=== PATIENT | male | born 1950 | race American Indian/Alaskan Native ===

== ENCOUNTER 2016-10-09 23:13 | Emergency (ER) | payer MEDICARE ==
[2016-10-09 23:58] LABS: Basophils % (Auto) 0.4 % (0.0-1.8); Hematocrit 33.7 % (35.5-45.6); Hemoglobin 11.1 gm/dl (11.8-15.2); Mean Corpuscular HGB Conc 33 % (32-34); Mean Corpuscular Hemoglobin 32 pg (28-32); Mean Corpuscular Volume 97 fl (84-94); Platelet Count 128 K/mm3 (140-440); Red Blood Count 3.47 M/mm3 (3.65-5.03); Red Cell Distribution Width 15.5 % (13.2-15.2); White Blood Count 8.9 K/mm3 (4.5-11.0)
[2016-10-10 00:08] LABS: INR 1.21 (0.87-1.13)
[2016-10-10 00:09] LABS: Partial Thromboplastin Time 35.3 Sec. (24.2-36.6)
[2016-10-10 00:11] LABS: Anion Gap 29 mmol/L; BUN/Creatinine Ratio 12.85; Blood Urea Nitrogen 9 mg/dL (9-20); Calcium 8.8 mg/dL (8.4-10.2); Carbon Dioxide 17 mmol/L (22-30); Chloride 92.1 mmol/L (98-107); Glucose 122 mg/dL (75-100); Potassium 3.7 mmol/L (3.6-5.0); Sodium 134 mmol/L (137-145)
--- NOTE | 2016-10-10 00:12 | Cat Scan Report ---
FINAL REPORT EXAM: CT HEAD/BRAIN WO CON HISTORY: RT SIDED WEAKNESS TECHNIQUE: CT imaging acquired through the head without intravenous contrast. Transaxial reformations are provided. PRIORS: None. FINDINGS: Left larger than right subdural hematomas. There is left subfalcine and uncal herniation. Left right midline shift measures approximately 12 millimeters at the level of the foramina of [place]. At the same level, left-sided subdural hematoma measures approximately 22 millimeters in thickness from the inner table of the skull. Right-sided subdural hematoma measures up to about 4 millimeters in thickness. Subdural blood layers along the cerebellar tentorium. No definite subarachnoid hemorrhage. No skull fracture. Mastoid air cells are clear. No significant abnormality seen within the imaged paranasal sinuses. IMPRESSION: Left-sided uncal and subfalcine herniation secondary to left larger than right epidural hematomas, as detailed above. Neuro surgical consultation is needed. Dr. Cool discussed findings with Dr. Eli at [address] [employer]END[employer] following the examination.
--- NOTE | 2016-10-10 00:22 | Emergency Department Report ---
HPI - General Chief Complaint: Neuro Symptoms/Deficit Time Seen by Provider: 10/10/16 00:08 - HPI HPI: This is a 66-year-old Afro-[place] male presents to the emergency Department through triage, dropped off by a friend, with complaint of some right leg weakness. The patient had a fall 2 days ago in which he hit his head but apparently did not have any loss of consciousness at that time. His head was not bothering him but he began having some right leg weakness which he was dragging his leg and allowed his friend bring him in to be seen. The patient does drink alcohol daily but the friend says that he has not a severely intoxicated as he drinks slowly throughout the day. He otherwise has a past medical history of hypertension. ED Past Medical Hx - Past Medical History Previous Medical History?: Yes Hx Hypertension: No Hx Heart Attack/AMI: No Hx Seizures: No Hx Asthma: No Hx COPD: No Additional medical history: ULCERS - Surgical History Past Surgical History?: No - Social History Smoking Status: Never Smoker Substance Use Type: Alcohol - Medications Home Medications: Home Medications Medication Instructions Recorded Confirmed Last Taken Type No Known Home Medications [No 02/14/15 02/14/15 Unknown History Reported Home Medications] ED Review of Systems ROS: Stated complaint: HEADACHE/VOMITING/CANT MOVE RT LEG Other details as noted in HPI Comment: All other systems reviewed and negative Constitutional: weakness. denies: fever Eyes: denies: eye pain, eye discharge, vision change ENT: denies: ear pain, throat pain Respiratory: denies: cough, shortness of breath, wheezing Cardiovascular: denies: chest pain, palpitations Gastrointestinal: denies: abdominal pain, nausea, diarrhea Genitourinary: denies: urgency, dysuria Musculoskeletal: denies: back pain, joint swelling, arthralgia Skin: denies: rash, lesions Neurological: denies: headache, weakness, paresthesias Physical Exam - Physical Exam Vital Signs: Vital Signs 10/09/16 23:30 Temperature 98.3 F Pulse Rate 77 Respiratory 18 Rate Blood Pressure 165/79 O2 Sat by Pulse 100 Oximetry Physical Exam: GENERAL: Patient is ill-appearing. He is fatigued but arousable but is also confused. HEENT: Normocephalic. Atraumatic. Extraocular motions are intact. Patient has moist mucous membranes. Pupils equal reactive to light bilaterally. NECK: Supple. Trachea is midline. CHEST/LUNGS: Clear to auscultation. There is no respiratory distress noted. HEART/CARDIOVASCULAR: Regular. There is no tachycardia. There is no gallop rub or murmur. ABDOMEN: Abdomen is soft, nontender. Patient has normal bowel sounds. There is no abdominal distention. SKIN: Skin is warm and dry. NEURO: Patient is awake and able to give his name. He keeps repeating that he has to urinate but has a Lozano catheter in place. Follow some commands. MUSCULOSKELETAL: There is no tenderness or deformity. There is no limitation range of motion. There is no evidence of acute injury. ED Course Vital Signs 10/09/16 23:30 Temperature 98.3 F Pulse Rate 77 Respiratory 18 Rate Blood Pressure 165/79 O2 Sat by Pulse 100 Oximetry - Consultations Consultation #1: I spoke with [facility] and the patient was accepted for transfer by the trauma attending, Dr. Mills. 10/10/16 00:53 - Intubation Time Out Performed: Yes Sedative: Etomidate Mg Given: 20 Paralytic: Rocuronium Mg Given: 80 Laryngoscope: fiberoptic video scope Size: 3 ET Tube Size: 7.5 Tube Secured Depth (cm): 24 Tube Secured Location: lips Tube Placement Confirmation: visualized tube passing t, equal breath sounds bilat, no breath sounds over epi Patient Tolerated Procedure: well Intubation Complications: none ED Medical Decision Making - Lab Data Result diagrams: 10/09/16 23:39 10/09/16 23:39 - EKG Data -: EKG Interpreted by Me EKG shows normal: sinus rhythm, axis, intervals, QRS complexes, ST-T waves Rate: bradycardia (56 bpm) - EKG Data When compared to previous EKG there are: previous EKG unavailable Interpretation: normal EKG (with mild bradycardia) - Radiology Data Radiology results: report reviewed EXAM: CT HEAD/BRAIN WO CON HISTORY: RT SIDED WEAKNESS TECHNIQUE: CT imaging acquired through the head without intravenous contrast. Transaxial reformations are provided. PRIORS: None. FINDINGS: Left larger than right subdural hematomas. There is left subfalcine and uncal herniation. Left right midline shift measures approximately 12 millimeters at the level of the foramina of [place]. At the same level, left-sided subdural hematoma measures approximately 22 millimeters in thickness from the inner table of the skull. Right-sided subdural hematoma measures up to about 4 millimeters in thickness. Subdural blood layers along the cerebellar tentorium. No definite subarachnoid hemorrhage. No skull fracture. Mastoid air cells are clear. No significant abnormality seen within the imaged paranasal sinuses. IMPRESSION: Left-sided uncal and subfalcine herniation secondary to left larger than right epidural hematomas, as detailed above. Neuro surgical consultation is needed. - Medical Decision Making 66-year-old male presents to the emergency department 2 days after having a fall with some new onset right lower extremity weakness to the point where he was dragging his leg. He also started to have some altered mental status. He is brought in by a friend. He had a stat CT scan of the head done that came back showing a large bilateral bleed with uncal herniation. Due to the patient' s confusion and slightly decreased mental status, in conjunction with the CT findings of a large brain bleed and uncal herniation, the patient was intubated to protect his airway and for stabilization for transport. The patient was life flighted to [facility] and was accepted for transfer by the trauma attending, Dr. Mills. - Differential Diagnosis alcohol intoxication, brain bleed, encephalopathy Critical Care Time: Yes Critical care time in (mins) excluding proc time.: 35 Critical care attestation.: If time is entered above; I have spent that time in minutes in the direct care of this critically ill patient, excluding procedure time. Critical care time was spent on this patient during his initial evaluation, multiple re-evaluations , blood pressure control and titration, ordering and evaluation of labs, ordering and evaluation of imaging, discussion with [facility], discussion with life flight nursing staff. This does not include the procedure time spent on the intubation. Critical Care Time: 35 minutes ED Disposition Clinical Impression: Subdural hematoma, Uncal herniation, Hypertensive urgency Disposition: [id number]/TX-[id number] ANOTHER TYPE HLTHCARE Is pt being admited?: No Condition: Critical Referrals: PRIMARY CARE, [Primary Care Provider] - 3-5 Days
[2016-10-10] MEDS ORDERED: ZEMURON IV ONE ×2 (00:24→00:39)
[2016-10-10] MEDS ORDERED: AMIDATE IV ONE ×2 (00:24→00:39)
[2016-10-10] MEDS ORDERED: DIPRIVAN 10 MG/ML 1,000 MG/100 ML BOTTLE IV ONE (00:47)
[2016-10-10] MEDS ORDERED: ARTIFICIAL TEARS OPHTH OINT OU PRN (01:05)
[2016-10-10] MEDS ORDERED: VASELINE LIP THERAPY TP PRN (01:05)
[2016-10-10] MEDS ORDERED: CARDENE 50 MG in NACL 0.9% 250ML 230 ML IV SCH (02:00)
[2016-10-10] MEDS ORDERED: DIPRIVAN 10 MG/ML 1,000 MG/100 ML BOTTLE IV SCH (02:00)
[2016-10-10] MEDS ORDERED: NACL 0.9% 500 ML IV SCH (02:00)
[2016-10-10 02:59] VITALS: BP 192/91
--- NOTE | 2016-10-10 03:04 | XRay Report ---
FINAL REPORT PROCEDURE: XR CHEST 1V AP TECHNIQUE: Chest radiograph anteroposterior view. CPT 56958 HISTORY: ETT placement COMPARISON: No prior studies are available for comparison. FINDINGS: Heart: Normal. Mediastinum/Vessels: Normal. Lungs/Pleural space: Minimal atelectasis bilateral lower lungs. No effusion or pneumothorax. Bony thorax: No acute osseous abnormality. Life support devices: The endotracheal tube ends 3 centimeters above the jarocho. IMPRESSION: Slight atelectasis bilateral lower lungs. The endotracheal tube ends 3 centimeters above the carinal..
== END 2016-10-10 02:00 | disposition other institution (70) ==
LOC: ED 23:13
DX: S06.5X0A Traumatic subdural hemorrhage without loss of consciousness, initial encounter (principal); G93.5 Compression of brain; I16.0 Hypertensive urgency; W01.10XA Fall on same level from slipping, tripping and stumbling with subsequent striking against unspecified object, initial encounter; Y93.89 Activity, other specified; Y92.89 Other specified places as the place of occurrence of the external cause; Y99.8 Other external cause status
CPT/HCPCS: 31500; 36415; 51702; 70450; 71010; 80048; 82962; 84484; 85025; 85610; 85670; 85730; 93005; 93010; 96365; 96375; 99291; G0480; J2704; J7050; 80320; 94002